=== PATIENT | female | born 1955 | race Caucasian/White ===

== ENCOUNTER 2017-10-24 05:55 | Inpatient (IN) | payer BC, OTHER ==
--- NOTE | 2017-10-24 06:05 | NUR ---
GPS RN NOTES: ADMITTED A 62 Y/O, FEMALE FROM [facility], ACCOMPANIED BY 2 EMT'S VIA GURNEY TRANSPORTED BY AMBULANCE. PATIENT ADMITTED ON HOLD 5150 DTS/DTO/GD. PER HOLD PATIENT HAS INCREASED AGITATION, FORGETFULNESS, YELLING, COMBATIVE, VERBALLY ABUSIVE, AND IS USING PROFANE LANGUAGE TOWARDS STAFF. UPON FACE TO FACE EVALUATION PATIENT ASLEEP, AROUSABLE TO TACTILE AND VERBAL STIMULI, CONFUSED, NO ACUTE DISTRESS NOTED, PATIENT WAS PLACED IN BED COMFORTABLY, SHOWS NO S/S OF ANY DISCOMFORT, RESPIRATION EVEN, BREATHING NON-LABORED, PATIENT IS UNDER THE PSYCHIATRIC CARE OF , ORDERS OBTAINED, AND UNDER THE THE MEDICAL CARE OF DR. STEWARD AND NOTIFIED OF ADMISSION TO RECONCILE MEDICATIONS. PATIENT REFUSED TO SIGN PAPERWORK AND REFUSED SKIN BODY ASSESSMENT. BELONGINGS INVENTORIED AND CHECKED FOR CONTRABAND, PATIENT BED IS LOCKED, LOW BED FOR SAFETY. WILL CONTINUE TO MONITOR [id number] FOR SAFETY AND BEHAVIOR. WILL ENDORSE TO INCOMING SHIFT FOR CONTINUITY OF CARE.
[2017-10-24] MEDS ORDERED: ACETAMINOPHEN 325 MG TABLET PO PRN (06:30)
[2017-10-24] MEDS ORDERED: MAGNESIUM HYDROXIDE 30 ML UDC PO PRN (06:30)
[2017-10-24] MEDS ORDERED: LORAZEPAM 0.5 MG TABLET PO PRN (06:30)
[2017-10-24] MEDS ORDERED: MAG HYDROX/AL HYDROX/SIMETH 30 ML UDC PO PRN (06:30)
[2017-10-24 06:53] VITALS: BP 138/86
[2017-10-24 08:00] VITALS: BP 133/70
[2017-10-24] MEDS ORDERED: DICY20TA11 PO (08:14)
[2017-10-24] MEDS ORDERED: ATOR10TA PO (08:14)
[2017-10-24] MEDS ORDERED: PRAM0.253 PO (08:14)
[2017-10-24] MEDS ORDERED: FLUT1BLS IH (08:14)
[2017-10-24] MEDS ORDERED: BIFI4CAP PO (08:14)
[2017-10-24] MEDS ORDERED: BUPR2TAB3 SL (08:14)
[2017-10-24] MEDS ORDERED: BENZ-13 PO (08:14)
[2017-10-24] MEDS ORDERED: CHOL100044 PO (08:14)
[2017-10-24] MEDS ORDERED: PRAS25TA PO (08:14)
[2017-10-24] MEDS ORDERED: QUET25TA PO (08:14)
[2017-10-24] MEDS ORDERED: VENL75CA56 PO (08:14)
[2017-10-24] MEDS ORDERED: ASPI-1169 PO (08:14)
[2017-10-24] MEDS ORDERED: RANI150T8 PO (08:14)
[2017-10-24] MEDS ORDERED: MULT-447 PO (08:14)
[2017-10-24] MEDS ORDERED: UBID200C13 PO (08:14)
[2017-10-24] MEDS ORDERED: ESTR-7 PO (08:14)
[2017-10-24] MEDS ORDERED: PROP20TA7 PO (08:14)
[2017-10-24] MEDS ORDERED: TIOT18CA3 IH (08:14)
[2017-10-24] MEDS ORDERED: ALBU8.5H8 IH (08:14)
[2017-10-24] MEDS: QUETIAPINE FUMARATE 25 MG TABLET PO SCH ×2 (11:50→16:16)
--- NOTE | 2017-10-24 15:36 | NUR ---
Initial Discharge Note: Patient lives with and son at [address] [place] [address] / [phone] and wishes to return upon discharge. SW called and spoke to patient's , Adam Banerjee at [phone]. states that he would like his to return home once she is stable. SW to follow up with MD and form a safe and proper discharge.
--- NOTE | 2017-10-24 15:48 | NUR ---
UR Review: MARLA FAXED CLINICALS TO TAMAR Mendez PHONE [phone] EXT [phone] / FAX # [phone]. MEDICAL / PSYCH HISTORY AND PHYSICAL WERE NOT AVAILABLE YET. MARLA INFORMED TAMAR THAT MARLA WILL FAX OVER HISTORY AND PHYSICAL ONCE UPLOADED. MARLA TO FOLLOW UP ON FRIDAY MORNING. REVIEW IS DUE ON 10/28. AUTHORIZATION#[id number]
[2017-10-24 16:00] VITALS: BP 131/63
[2017-10-24 21:39] VITALS: BP 116/59
[2017-10-24] MEDS ORDERED: ALBUTEROL SULFATE 8 GM HFA.AER.AD IH PRN (22:30)
[2017-10-25 08:00] VITALS: BP 144/79
[2017-10-25 08:01] LABS: MAGNESIUM 1.9 mg/dL (1.8-2.4); PHOSPHORUS 4.1 mg/dL (2.5-4.9)
[2017-10-25 08:04] LABS: ALBUMIN 3.8 g/dL (3.4-5.0); BILIRUBIN,TOTAL 0.6 mg/dL (0.2-1.0); CALCIUM, SERUM 9.2 mg/dL (8.5-10.1); CREATININE 0.6 mg/dL (0.6-1.3); POTASSIUM 3.7 mmol/L (3.5-5.1)
[2017-10-25] MEDS: QUETIAPINE FUMARATE 25 MG TABLET PO SCH ×2 (08:49→17:04)
[2017-10-25] MEDS ORDERED: TIOTROPIUM BROMIDE 6 CAP/BOX CAP.W.DEV IH SCH (09:00)
[2017-10-25] MEDS ORDERED: ALBUTEROL FS 2.5 MG/0.5 ML VIAL.NEB NEB PRN (09:30)
[2017-10-25] MEDS ORDERED: IPRATROPIUM NEB FS 0.5 MG/2.5 ML AMPUL.NEB NEB PRN (09:30)
[2017-10-25] MEDS: ASPIRIN 81 MG TAB.CHEW PO SCH (11:09)
[2017-10-25] MEDS: FLUTICASONE/VILANTEROL 1 EACH BLST.W.DEV IH SCH (11:09)
[2017-10-25] MEDS: BENZONATATE 100 MG CAPSULE PO SCH ×2 (14:30→17:04)
[2017-10-25 16:00] VITALS: BP 138/82
[2017-10-25] MEDS ORDERED: PRAMIPEXOLE DI-HCL 0.25 MG TABLET PO SCH (18:00)
--- NOTE | 2017-10-25 18:58 | NUR ---
GPS/RN UA COLLECTION CAP, HAT IN PT'S ROOM. PT EXPLAINED THE PROCEDURE AND SHE PROMISED TO COLLECT URINE SPECIMEN. WILL ENDORSE TO VIRA SHIFT TO FOLLOW UP WITH COLLECTION.
[2017-10-25 20:00] VITALS: BP 121/74
[2017-10-25] MEDS: TEMAZEPAM 7.5 MG CAPSULE PO PRN (21:45)
[2017-10-25] MEDS ORDERED: ATORVASTATIN 10 MG TABLET PO SCH (22:00)
[2017-10-26 08:00] VITALS: BP 120/73
[2017-10-26] MEDS: ASPIRIN 81 MG TAB.CHEW PO SCH (08:33)
[2017-10-26] MEDS: QUETIAPINE FUMARATE 25 MG TABLET PO SCH ×2 (08:53→17:16)
[2017-10-26] MEDS: FLUTICASONE/VILANTEROL 1 EACH BLST.W.DEV IH SCH (10:35)
[2017-10-26] MEDS: BENZONATATE 100 MG CAPSULE PO SCH ×2 (10:35→17:16)
[2017-10-26 14:06] LABS: APPEARANCE,URINE CLEAR (CLEAR); BILIRUBIN,URINE NEGATIVE (NEGATIVE); BLOOD, URINE NEGATIVE Ery/uL (NEGATIVE); COLOR,URINE YELLOW (YELLOW); KETONES,URINE TRACE (NEGATIVE); LEUKOCYTE ESTERASE ,URINE NEGATIVE (NEGATIVE); NITRITE, URINE NEGATIVE (NEGATIVE); PH,URINE 6.5 (5.0-8.0); PROTEIN,URINE NEGATIVE (NEGATIVE); UGLUCOSE NEGATIVE (NEGATIVE); UROBILINOGEN,URINE 0.2 EU/dL (0.2)
[2017-10-26 14:52] LABS: BACTERIA,URINE None seen /HPF (None Seen); RBC,URINE 0-2 /HPF (0-2); WBC,URINE 0-2 /HPF (0-3)
[2017-10-26 20:03] VITALS: BP 142/77
[2017-10-26] MEDS: TEMAZEPAM 7.5 MG CAPSULE PO PRN (21:36)
--- NOTE | 2017-10-26 22:46 | NUR ---
GPS RN NOTES PT. REFUSED WEEKLY SKIN REASSESSMENT AND PICTURES.
[2017-10-27 08:00] VITALS: BP 115/78
[2017-10-27] MEDS: QUETIAPINE FUMARATE 25 MG TABLET PO SCH ×2 (08:37→17:18)
[2017-10-27] MEDS: FLUTICASONE/VILANTEROL 1 EACH BLST.W.DEV IH SCH (08:37)
[2017-10-27] MEDS: ASPIRIN 81 MG TAB.CHEW PO SCH (08:37)
[2017-10-27] MEDS: BENZONATATE 100 MG CAPSULE PO SCH ×2 (08:37→17:18)
--- NOTE | 2017-10-27 10:35 | NUR ---
UR Update: MARLA FAXED UPDATED AND COMPLETED CLINICALS [HISTORY AND PHYSICAL, PROGRESS NOTES] TO TAMAR Mendez PHONE [phone] EXT [phone] / FAX # [phone]. REVIEW IS DUE ON 10/28. MARLA TO FOLLOW UP. AUTHORIZATION#[id number]
--- NOTE | 2017-10-27 10:36 | NUR ---
Discharge Planning: MARLA called and spoke to patient's , Adam Banerjee at [phone]. Adam stated that he is very happy with his 's progress and that he is willing to take her home when she is ready. Adam requested that home health be assigned for patient. Adam stated that he is retired and will be able to care for patient. Addendum: 10/27/17 at 1106 by DAVIDSON GUTIÉRREZ Adam's phone number is [phone]
[2017-10-27 16:17] VITALS: BP 117/88
[2017-10-27 20:03] VITALS: BP 120/75
[2017-10-27] MEDS: TEMAZEPAM 7.5 MG CAPSULE PO PRN (23:54)
[2017-10-28 08:00] VITALS: BP 149/100
[2017-10-28] MEDS: ASPIRIN 81 MG TAB.CHEW PO SCH (08:03)
[2017-10-28] MEDS: QUETIAPINE FUMARATE 25 MG TABLET PO SCH (08:03)
[2017-10-28] MEDS: BENZONATATE 100 MG CAPSULE PO SCH (08:03)
[2017-10-28] MEDS: FLUTICASONE/VILANTEROL 1 EACH BLST.W.DEV IH SCH (08:05)
--- NOTE | 2017-10-28 09:52 | NUR ---
Discharge Note: Patient will be discharged home to her and son at [address] [place] [address] / [phone]. Patient will be picked up by , Adam Banerjee [phone], in his private vehicle at 10:30am. Adam Banerjee is in agreement with discharge plan. Patient will be seen by psychiatrist Dr. Sunday Kang [address] [facility] [address], [place] [address] [phone] on November 24 at 1:30pm. Patient will also follow up with her lace mender, Dr. Nicki Caceres [address] [facility] [address], [place] [address] [phone] Patient was also provided referrals for her alcohol use. Patient was referred to an Alcoholic Anonymous meeting on November 03 at 12pm, located at [address] [place] [address]. Patient was referred to [facility] [address] [place] [address] and was informed that [facility] accepts walk-in clients before 5pm on weekdays. An additional resource was [facility] [address] [place] [address] .
--- NOTE | 2017-10-28 10:05 | NUR ---
SW conducted a substance abuse intervention with patient. Completed intervention is in patient's chart.
--- NOTE | 2017-10-28 10:30 | NUR ---
[id number]: PT IS 62 YEARS OLD DISCHARGE TO HOME WITH AND [place]ON AT [address] [place]. [address] IN STABLE CONDITION. COMPLAINT WITH MEDICATIONS, COOPERATIVE WITH TREATMENT PLANS. PT DENIES SI/HI AND INSTRUCTED TO GO TO THE CLOSEST ER IF DEVELOPING SI/HI. BEHAVIOR IMPROVED, PSYCHIATRIC TX PLANS MET, MEDICAL TX PLANS DEFERRED FOR CONTINUAL MONITORING. EDUCATED PT ABOUT AFTER CARE PLAN AND COPY PROVIDED. RETURN PERSONAL BELONGINGS TO PT. MEDICATIONS RECONCILED WITH DR. UGALDE AND SUPPLY CHAIN SPECIALIST ANTHONY VALENTINE. REPORT GIVEN TO TAYLER CARRION FOR CONTINUITY OF CARE. PROVIDE A COPY OF HOME HEALTH ORDERED. PT SIGNED DISCHARGE PAPERWORK. PT REFUSED SKIN ASSESSMENT. PT LEFT VIA PRIVATE CAR ACCOMPANIED BY AND SON.
--- NOTE | 2017-10-28 11:40 | NUR ---
MARLA asked RN to obtain home health order for patient from medical doctor. Home Health order was obtained. In the morning, MARLA called patient's insurance agency manager, Soni [phone] EXT [phone] / FAX # [phone] and requested a list of contracted home health agencies to be faxed to MARLA. MARLA to follow up.
[2017-11-01] MEDS ORDERED: DIVA500T2 PO (10:55)
== END 2017-10-28 10:30 | disposition home or self-care (01) | DRG 885 ==
LOC: GPS 05:55
PROVIDERS: ADMIT Psychiatry & Neurology Psychosomatic Medicine; ATTEND Psychiatry & Neurology Psychosomatic Medicine
DX: F29 Unspecified psychosis not due to a substance or known physiological condition (principal); G31.09 Other frontotemporal neurocognitive disorder; F02.80 Dementia in other diseases classified elsewhere, unspecified severity, without behavioral disturbance, psychotic disturbance, mood disturbance, and anxiety; F41.9 Anxiety disorder, unspecified; I25.10 Atherosclerotic heart disease of native coronary artery without angina pectoris; K21.9 Gastro-esophageal reflux disease without esophagitis; E78.5 Hyperlipidemia, unspecified; F32.9 Major depressive disorder, single episode, unspecified; Z79.891 Long term (current) use of opiate analgesic; Z79.899 Other long term (current) drug therapy; M79.7 Fibromyalgia; I10 Essential (primary) hypertension
CPT/HCPCS: 36415; 80053-TC; 80061-TC; 81000-TC; 82746; 83540-TC; 83735-TC; 84100-TC; 84443-TC

== ENCOUNTER 2017-10-29 07:44 | Inpatient (IN) | payer BC, OTHER ==
[~2017-10-29] VITALS: Ht 157.5 cm; Wt 65.3 kg
[~2017-10-29 07:44] MED LIST: ALBU8.5H8 IH; ASPI-1169 PO; ATOR10TA PO; BENZ-13 PO; BIFI4CAP PO; BUPR2TAB3 SL; CHOL100044 PO; DICY20TA11 PO; ESTR-7 PO; FLUT1BLS IH; MULT-447 PO; PRAM0.253 PO; PRAS25TA PO; PROP20TA7 PO; QUET25TA PO; RANI150T8 PO; TIOT18CA3 IH; UBID200C13 PO; VENL75CA56 PO
--- NOTE | 2017-10-29 07:48 | NUR ---
DR. TAN AT BEDSIDE
--- NOTE | 2017-10-29 07:55 | NUR ---
BIB FAMILY FROM HOME C/O ALTERED MENTAL STATUS, LAST KNOWN WELL WAS LAST NIGHT PER FAMILY. PATIENT WAS DISCHARGED YESTERDAY FROM GPS. FAMILY DENIES USE OF OTHER DRUGS ASIDE FROM THE ONE BEING PRESCRIBED TO HER. ALSO DENIES FALL. SKIN IS COLD AND DIAPHORETIC. PLACED ON 2 POINT RESTRAINTS PER ER MD ORDER. ASSISTED TO HOSPITAL GOWN AND MONITOR. ER MD AT FOR EVAL. WILL CONTINUOUSLY MONITOR THE PATIENT.
[2017-10-29] MEDS ORDERED: IV NS 0.9% 500 ML BAG IV ONE (08:00)
[2017-10-29] MEDS ORDERED: LORAZEPAM INJ 2 MG/ML VIAL ONE (08:00)
[2017-10-29] MEDS ORDERED: LORAZEPAM INJ 2 MG/ML VIAL IV ONE (08:00)
[2017-10-29 08:12] LABS: BASOPHILS % (AUTO) 0.2 % (0.0-2.0); EOSINOPHILS # (AUTO) 0.1 /CMM (0.0-0.7); EOSINOPHILS % (AUTO) 1.3 % (0.0-6.0); HEMATOCRIT 37 % (33-45); HEMOGLOBIN 12.9 g/dL (11.5-14.8); LYMPHOCYTES # (AUTO) 1.4 /CMM (0.8-4.8); LYMPHOCYTES % (AUTO) 12.6 % (20.0-44.0); MEAN CORPUSCULAR HEMOGLOBIN 34 PG (26.0-33.0); MEAN CORPUSCULAR HGB CONC 35 g/dl (31.0-36.0); MEAN CORPUSCULAR VOLUME 98 fL (82-100); MONOCYTES # (AUTO) 0.6 /CMM (0.1-1.30); MONOCYTES % (AUTO) 5.6 % (2.0-12.0); NEUTROPHILS # (AUTO) 8.9 /CMM (1.8-8.9); NEUTROPHILS % (AUTO) 80.3 % (43.0-81.0); PLATELET COUNT (AUTO) 317 /CMM (150-450); RDW COEFFICIENT OF VARIATION 14.1 (11.5-15.0); RED BLOOD CELL COUNT(AUTO) 3.78 MIL/uL (4.0-5.2); WHITE BLOOD COUNT (AUTO) 11.1 K/uL (4.3-11.0)
--- NOTE | 2017-10-29 08:13 | NUR ---
DUE MEDS GIVEN ORDERED
[2017-10-29 08:21] LABS: CALCIUM, SERUM 9.9 mg/dL (8.5-10.1); CARBON DIOXIDE 24 mmol/L (21-32); CHLORIDE 105 mmol/L (98-107); CREATININE 0.7 mg/dL (0.6-1.3); GLUCOSE 103 mg/dL (74-106); POTASSIUM 5.7 mmol/L (3.5-5.1); SODIUM SERUM 141 mmol/L (136-145); UREA NITROGEN, BLOOD 13 mg/dL (7-18)
[2017-10-29 08:23] LABS: APPEARANCE,URINE SL CLOUDY (CLEAR); BILIRUBIN,URINE NEGATIVE (NEGATIVE); BLOOD, URINE NEGATIVE Ery/uL (NEGATIVE); COLOR,URINE YELLOW (YELLOW); KETONES,URINE NEGATIVE (NEGATIVE); LEUKOCYTE ESTERASE ,URINE NEGATIVE (NEGATIVE); NITRITE, URINE NEGATIVE (NEGATIVE); PROTEIN,URINE NEGATIVE (NEGATIVE); UGLUCOSE NEGATIVE (NEGATIVE); UROBILINOGEN,URINE 0.2 EU/dL (0.2)
[2017-10-29 08:23] LABS: INR 0.88 (0.87-1.13)
[2017-10-29 08:27] LABS: ALANINE AMINOTRANSFERASE 31 U/L (12-78); ALBUMIN 4.6 g/dL (3.4-5.0); ALKALINE PHOSPHATASE 93 U/L (46-116); ASPARTATE AMINOTRANSFERASE 28 U/L (15-37); TOTAL PROTEIN, SERUM 8.3 g/dL (6.4-8.2)
[2017-10-29 08:28] LABS: BILIRUBIN,TOTAL 0.8 mg/dL (0.2-1.0); TROPONIN I < 0.017 ng/mL (0.00-0.056)
[2017-10-29 08:29] LABS: ALCOHOL, BLOOD < 3 mg/dL (0-0); BILIRUBIN,DIRECT 0.1 mg/dL (0.0-0.2)
[2017-10-29] MEDS ORDERED: MIDAZOLAM HCL 2 MG/2ML VIAL ONE (08:29)
[2017-10-29] MEDS ORDERED: MIDAZOLAM HCL 2 MG/2ML VIAL IV ONE (08:30)
--- NOTE | 2017-10-29 08:30 | NUR ---
PT TAKEN TO CT.
[2017-10-29] MEDS ORDERED: IV NS 0.9% 1,000 ML BAG IV ONE (09:30)
[2017-10-29] MEDS ORDERED: BENZOIN COMPOUND TINCT 60 ML BOTTLE MM ONE (09:30)
[2017-10-29] MEDS ORDERED: BENZOIN COMPOUND TINCT 60 ML BOTTLE ONE (09:36)
--- NOTE | 2017-10-29 09:48 | NUR ---
DR. HAMM AT BS FOR EVAL.
[2017-10-29] MEDS ORDERED: HALOPERIDOL LACTATE INJ 5 MG/ML VIAL ONE ×2 (09:54→10:25)
--- NOTE | 2017-10-29 10:00 | NUR ---
RECEIVED VERBAL ORDERS FROM FOR HALDOL. ORDERS CARRIED OUT.
--- NOTE | 2017-10-29 10:10 | NUR ---
DR. MERCEDES AT FOR EVAL.
--- NOTE | 2017-10-29 10:12 | NUR ---
REPORT GIVEN TO SHAHNAZ MONTENEGRO FOR TELE 116-1
[2017-10-29 10:13] LABS: CALCIUM, SERUM 9.4 mg/dL (8.5-10.1); CREATININE 0.7 mg/dL (0.6-1.3); POTASSIUM 5.1 mmol/L (3.5-5.1)
[2017-10-29] MEDS ORDERED: Z GUARD REMEDY 2 OZ OINT TP PRN (10:30)
[2017-10-29] MEDS ORDERED: HALOPERIDOL LACTATE INJ 5 MG/ML VIAL IM ONE (10:30)
[2017-10-29] MEDS ORDERED: ACETAMINOPHEN 650 MG/SUPP.RECT RC PRN (10:30)
[2017-10-29] MEDS ORDERED: ONDANSETRON HCL/PF 4 MG/2 ML VIAL IVP PRN (10:30)
[2017-10-29 10:45] LABS: SALICYLATE 2.5 mg/dL (2.8-20.0)
--- NOTE | 2017-10-29 11:00 | NUR ---
RABIA BULK PLANT OPERATOR NOTE: REPORT RECEIVED FROM MONI MOON. PATIENT TRANSFERRED VIA GURNEY ACCOMPANIED BY MANAGER UTILIZATION REVIEW AND ENGLISH TUTOR. ADMITTED IN RM 114-1 RABIA STATUS. PATIENT IS NOT ALERT, UNABLE TO VERBALIZE NEEDS. WITH EYES CLOSE AND UNABLE TO FOLLOW SIMPLE COMMANDS. PT WAS UNCOOPERATIVE AND ALL EXTREMITIES WERE MOVING CONSISTENTLY. PATIENT ARRIVED TO THE UNIT WITH BILATERAL SOFT WRIST RESTRAINTS. RIGHT HAND IV SITE WAS NOTED PULLED OUT. GREENBERG CATHETER WAS IN PLACED UPON ADMISSION DRAINING TO GRAVITY WITH YELLOW URINE. ON CARDIAC MONITORING WITH SINUS TACHYCARDIA HR 126. GENERALIZED SKIN WAS NOTED INTACT EXCEPT FOR THE LEFT LOWER LEG SCAR WITH REDNESS NOTED. BED ALARM ON. SAFETY PRECAUTIONS OBSERVED. PADDED SIDERAILS FOR SAFETY. CALL LIGHT PLACED WITHIN REACH.
[2017-10-29] MEDS: ENOXAPARIN SODIUM 40 MG/0.4 ML DISP.SYRIN SQ SCH (11:27)
[2017-10-29 12:00] VITALS: BP_SYST 100; BP_SYST 136; BP_DIAS 45; BP_DIAS 83
--- NOTE | 2017-10-29 13:00 | NUR ---
RN NOTE: PER DR. MCLEAN, START IV FLUID 1/2 NS @75ML/HR.
[2017-10-29] MEDS: LORAZEPAM INJ 2 MG/ML VIAL IV PRN ×2 (13:50→20:51)
[2017-10-29] MEDS: IV 1/2NS 1000 ML 1,000 ML IV PRN (13:51)
[2017-10-29 16:00] VITALS: BP 137/74
[2017-10-29 17:06] VITALS: BP 94/137
--- NOTE | 2017-10-29 19:19 | NUR ---
RABIA RN NOTE: CALLED AND LEFT A MESSAGE FOR DR. BELLO RE: THE PATIENT'S EEG ORDER. EEG TEST WAS NOT DONE DUE TO PATIENT'S INTERMITTENT MOVEMENT DESPITE ADMINISTRATION OF ATIVAN PRN ORDERED.
--- NOTE | 2017-10-29 19:20 | NUR ---
RABIA RN CLOSING NOTE: PATIENT IS IN BED, ALERT TO HER NAME WITH INTERMITTENT CONFUSION NOTED. OPEN HER EYES WHEN CALLING HER NAME. CONTINUOUS REORIENTATION OF HER SURROUNDING WAS DONE. NO SOB NOTED. DENIED ANY PAIN. (B) SOFT WRIST RESTRAINT REMAINED IN PLACED FOR SAFETY. REORIENTED PATIENT WITH HER ENVIRONMENT. GREENBERG CATHETER IN PLACED AND DRAINING TO GRAVITY. (R) FOREARM IV LINE REMAINED INTACT AND PATENT WITH 1/2 NS INFUSING ORDERED. ON GUN FITTER SINUS TACHYCARDIA HR OF 120. CALL LIGHT WITHIN REACH. ON PADDED SIDERAILS. LOW BED AND BED ON LOCKED. ENDORSED TO ASHLEY, RN FOR CONTINUITY OF CARE.
--- NOTE | 2017-10-29 19:30 | NUR ---
RABIA RN INITIAL NOTES RECEIVED PATIENT RESTLESS, ALTERED, ATTEMPTING TO GET OUT OF BED WITH EYES CLOSED, MUMBLING WORDS. NO S/S OF PAIN OR DISCOMFORT. SITTER AT BEDSIDE. ON TELE MONITOR SINUS TACH 115. WITH F/C PATENT AND INTACT, DRAINING BY GRAVITY. IVF RUNNING. SIDE RAILS UP AND LOCKED. BED KEPT AT LOWEST POSITION. CALL LIGHT KEPT WITHIN EASY REACH. WILL CONTINUE TO MONITOR.
[2017-10-29 20:00] VITALS: BP 142/82
[2017-10-30] VITALS: BP 132/59
[2017-10-30] MEDS: IV 1/2NS 1000 ML 1,000 ML IV PRN (02:46)
[2017-10-30 04:00] VITALS: BP 129/73
--- NOTE | 2017-10-30 04:00 | NUR ---
PATIENT STILL DROWSY BUT AROUSABLE, ABLE TO STATE NAME AND YEAR, ABLE TO FOLLOW SIMPLE COMMANDS. DENIES PAIN OR DISCOMFORT. NO RESPIRATORY DISTRESS NOTED. WILL CONTINUE TO MONITOR.
[2017-10-30 07:24] LABS: BASOPHILS % (AUTO) 0.4 % (0.0-2.0); EOSINOPHILS # (AUTO) 0.1 /CMM (0.0-0.7); EOSINOPHILS % (AUTO) 0.6 % (0.0-6.0); HEMATOCRIT 35 % (33-45); HEMOGLOBIN 11.9 g/dL (11.5-14.8); LYMPHOCYTES # (AUTO) 1.6 /CMM (0.8-4.8); LYMPHOCYTES % (AUTO) 15.8 % (20.0-44.0); MEAN CORPUSCULAR HEMOGLOBIN 34 PG (26.0-33.0); MEAN CORPUSCULAR HGB CONC 34 g/dl (31.0-36.0); MEAN CORPUSCULAR VOLUME 100 fL (82-100); MONOCYTES # (AUTO) 0.8 /CMM (0.1-1.30); NEUTROPHILS # (AUTO) 7.5 /CMM (1.8-8.9); NEUTROPHILS % (AUTO) 75.2 % (43.0-81.0); PLATELET COUNT (AUTO) 257 /CMM (150-450); RDW COEFFICIENT OF VARIATION 14.1 (11.5-15.0); RED BLOOD CELL COUNT(AUTO) 3.49 MIL/uL (4.0-5.2)
--- NOTE | 2017-10-30 07:31 | NUR ---
RABIA RN CLOSING NOTES NO SIGNIFICANT CHANGES OVERNIGHT. NO RESPIRATORY DISTRESS NOTED. NO SEIZURE EPISODE. 1:1 SITTER AT BEDSIDE. PATIENT MORE ALERT, FOLLOWS SIMPLE COMMANDS. ALL NEEDS ANTICIPATED AND MET. F/C PATENT AND INTACT, DRAINING BY GRAVITY. SIDE RAILS UP AND LOCKED. BED KEPT AT LOWEST POSITION. CALL LIGHT KEPT WITHIN EASY REACH. CONTINUITY OF CARE ENDORSED TO AM NURSE.
[2017-10-30 07:40] LABS: CREATININE 0.5 mg/dL (0.6-1.3); PHOSPHORUS 4.1 mg/dL (2.5-4.9); POTASSIUM 3.2 mmol/L (3.5-5.1)
[2017-10-30 08:00] VITALS: BP 130/69
[2017-10-30] MEDS: ENOXAPARIN SODIUM 40 MG/0.4 ML DISP.SYRIN SQ SCH (08:41)
[2017-10-30] MEDS: POTASSIUM CL. PREMIX PERIPHER. 50 ML IV SCH ×4 (11:10→14:56)
[2017-10-30 12:00] VITALS: BP 138/82
[2017-10-30 16:00] VITALS: BP 138/80
--- NOTE | 2017-10-30 18:52 | NUR ---
Patient was recently admitted at the [facility] unit and discharged home on 10/24/17. She lives with and son at [address] [place] [address], [place] [address] / [phone]. Patient is ambulatory and independent with adl's. and son are very involved and supportive. Current plan is to dc back home once discharge . Addendum: 10/30/17 at 1852 by MARIA LUISA PANIAGUA RN Amended: Links added.
--- NOTE | 2017-10-30 19:47 | NUR ---
RABIA RN INITIAL NOTES RECEIVED PATIENT IN BED AWAKE, ABLE TO RESPOND TO QUESTIONS . DENIES PAIN OR DISCOMFORT. SITTER AT BEDSIDE. ON TELE MONITOR SINUS TACH 115. WITH F/C PATENT AND INTACT, DRAINING BY GRAVITY. IVF RUNNING. SIDE RAILS UP AND LOCKED. BED KEPT AT LOWEST POSITION. CALL LIGHT KEPT WITHIN EASY REACH. WILL CONTINUE TO MONITOR.
[2017-10-30 20:00] VITALS: BP 135/86
[2017-10-30] MEDS: LORAZEPAM INJ 2 MG/ML VIAL IV PRN (23:16)
[2017-10-31] VITALS: BP 121/78
[2017-10-31 04:00] VITALS: BP 118/74
--- NOTE | 2017-10-31 06:20 | NUR ---
RABIA RN CLOSING NOTES ENDORSED PATIENT IN BED AWAKE, ABLE TO RESPOND TO QUESTIONS . DENIES PAIN OR DISCOMFORT. SITTER AT BEDSIDE. ON TELE MONITOR SINUS TACH 106. WITH F/C PATENT AND INTACT, DRAINING BY GRAVITY. IVF RUNNING. SIDE RAILS UP AND LOCKED. BED KEPT AT LOWEST POSITION. CALL LIGHT KEPT WITHIN EASY REACH. WILL CONTINUE TO MONITOR.
[2017-10-31 07:08] LABS: CALCIUM, SERUM 8.8 mg/dL (8.5-10.1); CREATININE 0.4 mg/dL (0.6-1.3); POTASSIUM 4.2 mmol/L (3.5-5.1)
--- NOTE | 2017-10-31 07:36 | NUR ---
RABIA RN INITIAL NOTES RN RECEIVED PATIENT IN BED AWAKE AND ALERT . PATIENT STATES PAIN AND DISCOMFORT DUE TO GREENBERG. F/C PATENT AND INTACT, DRAINING BY GRAVITY. SITTER AT BEDSIDE. PT ON TELE MONITOR. IVF RUNNING. SIDE RAILS UP AND LOCKED. BED KEPT AT LOWEST POSITION. CALL LIGHT KEPT WITHIN EASY REACH. RN WILL CONTINUE TO MONITOR THROUGHOUT THE DAY.
[2017-10-31 08:00] VITALS: BP 131/78
[2017-10-31] MEDS: ENOXAPARIN SODIUM 40 MG/0.4 ML DISP.SYRIN SQ SCH (08:26)
--- NOTE | 2017-10-31 11:09 | NUR ---
ELEVATOR INSTALLER PATIENT WANTS TO REMOVE GREENBERG DR RIVERA NOTIFIED OK TO REMOVE,REMOVED ORDERED 500 ML NOTED WILL F\U TO URINATE
--- NOTE | 2017-10-31 11:12 | NUR ---
WOUND CARE CONSULT: PT PRESENTS WITH FEW DARK BROWN SPOTS ON LEFT LOWER LEG. NO DRAINAGE NOTED BUT PT NOTED TO BE PICKING AT SKIN. RECOMMEND PROTECT WITH MEPILEX. PT AND FAMILY STATE SHE IS BEING TREATED BY VASCULAR SURGEON. WILL SEE PRN. PT IS AMBULATORY AND CONTINENT AT THIS POINT. CURRENT ROLLY SCORE IS 16.
[2017-10-31 12:00] VITALS: BP_SYST 135; BP_DIAS 54; BP_DIAS 84
[2017-10-31] MEDS ORDERED: VALPROATE 1,000 MG in IV D5W 100 ML IV STA (15:36)
[2017-10-31 16:00] VITALS: BP 121/83
--- NOTE | 2017-10-31 19:59 | NUR ---
rn note rn notified and endorsed patient need for a new iv line due to her previous iv infiltration pm rn acknowledged and attempts to insert a new line for the patient pm charge nurse notified.
[2017-10-31 20:00] VITALS: BP 156/84
--- NOTE | 2017-10-31 20:01 | NUR ---
AUTO CLAIM REPRESENTATIVE INITIAL NOTE PT IN BED AWAKE, ALERT ABLE TO MAKE NEEDS KNOWN . DENIES PAIN OR DISCOMFORT AT THIS TIME . SITTER AT BEDSIDE. ON TELE MONITOR SINUS TACH. F/C D/C'D PER PATIENT REQUEST PATIENT AMBULATORY . IVF HELD DUE TO IV INFILTRATION PM RN NOTIFIED AND WILL ATTEMPT TO PLACE A NEW LINE . SIDE RAILS UP AND LOCKED. BED KEPT AT LOWEST POSITION. CALL LIGHT KEPT WITHIN EASY REACH. WILL CONTINUE TO MONITOR.
[2017-10-31] MEDS: IV 1/2NS 1000 ML 1,000 ML IV PRN (20:22)
[2017-10-31] MEDS: LORAZEPAM INJ 2 MG/ML VIAL IV PRN (20:32)
[2017-10-31] MEDS: DIVALPROEX SODIUM 500 MG TABLET.DR PO SCH (20:32)
[2017-11-01] VITALS: BP 141/85
[2017-11-01] MEDS: LORAZEPAM INJ 2 MG/ML VIAL IV PRN (02:23)
[2017-11-01 04:00] VITALS: BP 11/72
--- NOTE | 2017-11-01 06:00 | NUR ---
pt slept well overnight,ambulates to bathroom and voiding well, no episode of seizure activity,ativan requested x2 doses given overnight. continue with iv fluids infusing well to new iv site ,intact and patent,vss,afebrile, sinus rhythm on monitor.
[2017-11-01 08:00] VITALS: BP 118/78
[2017-11-01] MEDS: DIVALPROEX SODIUM 500 MG TABLET.DR PO SCH (08:40)
[2017-11-01] MEDS: ENOXAPARIN SODIUM 40 MG/0.4 ML DISP.SYRIN SQ SCH (08:43)
[2017-11-01] MEDS ORDERED: DIVA500T2 PO (10:55)
--- NOTE | 2017-11-01 11:30 | NUR ---
Discharge of the stable patient from [facility]. Family accompanied for discharge instruction and ride to her home. IV removed. All belonings and paperwork sent with the patient. Prescription picker/puller for depakote instruction to [facility]. Family and patient verbalize understanding.
== END 2017-11-01 11:43 | disposition home or self-care (01) | DRG 917 ==
LOC: ER 07:44 → TELE1 10:40 → TELE-TD 11:31 → TELE1 10-31 11:08 → MEDSG1 11-01 10:15
PROVIDERS: ADMIT Internal Medicine; ATTEND Internal Medicine
DX: T44.3X1A Poisoning by other parasympatholytics [anticholinergics and antimuscarinics] and spasmolytics, accidental (unintentional), initial encounter (principal); G92 Toxic encephalopathy; E87.2 Acidosis; R56.9 Unspecified convulsions; R65.10 Systemic inflammatory response syndrome (SIRS) of non-infectious origin without acute organ dysfunction; F29 Unspecified psychosis not due to a substance or known physiological condition; G31.09 Other frontotemporal neurocognitive disorder; F02.80 Dementia in other diseases classified elsewhere, unspecified severity, without behavioral disturbance, psychotic disturbance, mood disturbance, and anxiety; G89.4 Chronic pain syndrome; Z79.899 Other long term (current) drug therapy; Z79.891 Long term (current) use of opiate analgesic; Z79.82 Long term (current) use of aspirin; I10 Essential (primary) hypertension; Y92.009 Unspecified place in unspecified non-institutional (private) residence as the place of occurrence of the external cause; F43.9 Reaction to severe stress, unspecified; F32.9 Major depressive disorder, single episode, unspecified; H57.04 Mydriasis; E78.5 Hyperlipidemia, unspecified; I25.10 Atherosclerotic heart disease of native coronary artery without angina pectoris; K21.9 Gastro-esophageal reflux disease without esophagitis; M79.7 Fibromyalgia; I70.0 Atherosclerosis of aorta; R41.0 Disorientation, unspecified
CPT/HCPCS: 36415; 70450-TC; 71045-TC; 80048-TC; 80076-TC; 80164-TC; 80305; 81000-TC; 82550-TC; 82962-TC; 83605-TC; 83735-TC; 83935-TC; 84100-TC; 84484-TC; 85025-TC; 85730-TC; 87081-TC; 95819-TC; A4606; G0480; J1630; J1650; J2060; J2250; J3480; J3490; J7030; J7040; J7060; Z7610

== ENCOUNTER 2017-11-09 16:16 | Emergency (ER) | payer BC ==
[~2017-11-09] VITALS: Ht 152.4 cm; Wt 63.5 kg
[~2017-11-09 16:16] MED LIST changes: -BENZ-13 PO; -BIFI4CAP PO; -BUPR2TAB3 SL; -DICY20TA11 PO; +DIVA500T2 PO; -PRAM0.253 PO; -PROP20TA7 PO; -QUET25TA PO; -TIOT18CA3 IH; -VENL75CA56 PO
--- NOTE | 2017-11-09 16:37 | NUR ---
PT BIB TO ER BED 10. STATES PT IS MORE CONFUSED AND DISORIENTED. WEAK AND FALLING DOWN. PLACED ON MONITOR. STABLE VITALS. AWAITING MD MILLER.
--- NOTE | 2017-11-09 16:45 | NUR ---
DR HANNON AT BEDSIDE FOR EVAL.
[2017-11-09 17:23] LABS: BASOPHILS % (AUTO) 0.4 % (0.0-2.0); EOSINOPHILS % (AUTO) 0.7 % (0.0-6.0); HEMATOCRIT 34 % (33-45); HEMOGLOBIN 11.2 g/dL (11.5-14.8); LYMPHOCYTES # (AUTO) 1.8 /CMM (0.8-4.8); LYMPHOCYTES % (AUTO) 28.9 % (20.0-44.0); MEAN CORPUSCULAR HEMOGLOBIN 34 PG (26.0-33.0); MEAN CORPUSCULAR HGB CONC 33 g/dl (31.0-36.0); MEAN CORPUSCULAR VOLUME 101 fL (82-100); MONOCYTES # (AUTO) 0.4 /CMM (0.1-1.30); MONOCYTES % (AUTO) 6.9 % (2.0-12.0); NEUTROPHILS # (AUTO) 3.9 /CMM (1.8-8.9); NEUTROPHILS % (AUTO) 63.1 % (43.0-81.0); PLATELET COUNT (AUTO) 274 /CMM (150-450); RDW COEFFICIENT OF VARIATION 14.3 (11.5-15.0); RED BLOOD CELL COUNT(AUTO) 3.33 MIL/uL (4.0-5.2); WHITE BLOOD COUNT (AUTO) 6.2 K/uL (4.3-11.0)
[2017-11-09 17:32] LABS: CALCIUM, SERUM 9.3 mg/dL (8.5-10.1); CREATININE 0.7 mg/dL (0.6-1.3); POTASSIUM 4.5 mmol/L (3.5-5.1)
[2017-11-09 17:37] LABS: ALBUMIN 3.9 g/dL (3.4-5.0); BILIRUBIN,DIRECT 0.1 mg/dL (0.0-0.2); BILIRUBIN,TOTAL 0.4 mg/dL (0.2-1.0); TOTAL PROTEIN, SERUM 6.9 g/dL (6.4-8.2)
--- NOTE | 2017-11-09 18:41 | NUR ---
PT VERBALLY DISCHARGE BY SEDA AHNNON. STABLE CONDITION.
[2017-11-09 18:44] VITALS: BP 108/66
== END 2017-11-09 18:45 | disposition home or self-care (01) ==
LOC: ER 16:17
DX: R41.82 Altered mental status, unspecified (principal); G40.909 Epilepsy, unspecified, not intractable, without status epilepticus; I10 Essential (primary) hypertension; F17.200 Nicotine dependence, unspecified, uncomplicated; Z79.82 Long term (current) use of aspirin
CPT/HCPCS: 36415; 80048-TC; 80076-TC; 82140-TC; 85025-TC; A4606; G0480; Z7610

== ENCOUNTER 2017-11-13 11:44 | Inpatient (IN) | payer BC, OTHER ==
[~2017-11-13] VITALS: Ht 157.5 cm; Wt 56.7 kg
--- NOTE | 2017-11-13 12:30 | NUR ---
BIB FAMILY, TO ER FOR INCREASING CONFUSION AND HITTING ADAIR, NAD NOTED, VSS, RESP EVEN AND UNLABORED, PT PUT ON MONITOR, WAITING FOR MD ANGELA.
--- NOTE | 2017-11-13 12:41 | NUR ---
PT UNABLE TO PROVIDE URINE AT THIS MOMENT.
[2017-11-13 12:47] LABS: BASOPHILS # (AUTO) 0.2 /CMM (0.0-0.2); BASOPHILS % (AUTO) 2.4 % (0.0-2.0); EOSINOPHILS % (AUTO) 0.4 % (0.0-6.0); HEMATOCRIT 35 % (33-45); LYMPHOCYTES # (AUTO) 1.5 /CMM (0.8-4.8); LYMPHOCYTES % (AUTO) 21.6 % (20.0-44.0); MEAN CORPUSCULAR HEMOGLOBIN 34 PG (26.0-33.0); MEAN CORPUSCULAR HGB CONC 35 g/dl (31.0-36.0); MEAN CORPUSCULAR VOLUME 99 fL (82-100); MONOCYTES # (AUTO) 0.4 /CMM (0.1-1.30); NEUTROPHILS % (AUTO) 69.6 % (43.0-81.0); PLATELET COUNT (AUTO) 251 /CMM (150-450); RDW COEFFICIENT OF VARIATION 13.4 (11.5-15.0); WHITE BLOOD COUNT (AUTO) 7.1 K/uL (4.3-11.0)
[2017-11-13] MEDS ORDERED: LORAZEPAM 1 MG TABLET ONE (13:02)
[2017-11-13 13:03] LABS: ALANINE AMINOTRANSFERASE 13 U/L (12-78); ALBUMIN 3.7 g/dL (3.4-5.0); ALKALINE PHOSPHATASE 71 U/L (46-116); ASPARTATE AMINOTRANSFERASE 15 U/L (15-37); BILIRUBIN,DIRECT 0.1 mg/dL (0.0-0.2); BILIRUBIN,TOTAL 0.3 mg/dL (0.2-1.0); CARBON DIOXIDE 25 mmol/L (21-32); CHLORIDE 104 mmol/L (98-107); CREATININE 0.5 mg/dL (0.6-1.3); GLUCOSE 88 mg/dL (74-106); POTASSIUM 3.8 mmol/L (3.5-5.1); SODIUM SERUM 137 mmol/L (136-145); UREA NITROGEN, BLOOD 16 mg/dL (7-18)
[2017-11-13 13:04] LABS: ACETAMINOPHEN 0 ug/ml (10-30); ALCOHOL, BLOOD < 3 mg/dL (0-0); SALICYLATE 2.3 mg/dL (2.8-20.0)
[2017-11-13] MEDS ORDERED: LORAZEPAM 1 MG TABLET PO ONE (13:30)
--- NOTE | 2017-11-13 13:32 | NUR ---
urine sent to lab
[2017-11-13 13:35] LABS: APPEARANCE,URINE Clear (CLEAR); BILIRUBIN,URINE Negative (NEGATIVE); BLOOD, URINE Negative Ery/uL (NEGATIVE); COLOR,URINE Yellow (YELLOW); KETONES,URINE Trace (NEGATIVE); LEUKOCYTE ESTERASE ,URINE Negative (NEGATIVE); NITRITE, URINE Negative (NEGATIVE); PROTEIN,URINE Negative (NEGATIVE); UGLUCOSE Negative (NEGATIVE); UROBILINOGEN,URINE 0.2 EU/dL (0.2)
[2017-11-13] MEDS ORDERED: DIVA500T2 PO (14:10)
[2017-11-13] MEDS ORDERED: PROP10TA10 PO (14:11)
[2017-11-13] MEDS ORDERED: LORA-259 PO (14:11)
[2017-11-13] MEDS ORDERED: FLUT1BLS IH (14:15)
--- NOTE | 2017-11-13 15:30 | NUR ---
GPS/RN PATIENT ADMITTED ON A 5150 FOR DTS AND GD UNDER THE CARE OF DR UGALDE AND DR STEWARD. BOTH DR'S AWARE OF NEW ADMISSION, MEDICATIONS RECONCILED IN SYSTEM. PER HOLD PATIENT ATTEMPTED TO JUMP INTO TRAFFIC. UPON FACE TO FACE ASSESSMENT PATIENT IS ALERT X 3, STABLE CONDITION, ANXIOUS, DISORGANIZED, UNKEMPT AND DENIES ANY SI AT THIS TIME. PICTURES TAKEN OF SKIN, ADMISSION PACKET COMPLETED. AT THIS TIME PATIENT IS IN DINING ROOM, WILL CONTINUE TO MONITOR Q 15 MIN FOR SAFETY AND BEHAVIOR.
[2017-11-13] MEDS ORDERED: ACETAMINOPHEN 325 MG TABLET PO PRN (16:00)
[2017-11-13] MEDS ORDERED: MAGNESIUM HYDROXIDE 30 ML UDC PO PRN (16:00)
[2017-11-13] MEDS ORDERED: MAG HYDROX/AL HYDROX/SIMETH 30 ML UDC PO PRN (16:00)
[2017-11-13 16:48] VITALS: BP 120/92
[2017-11-13] MEDS ORDERED: UBIDECARENONE 600 MG PO SCH (17:00)
[2017-11-13] MEDS ORDERED: ALBUTEROL SULFATE 8 GM HFA.AER.AD IH PRN (17:00)
[2017-11-13] MEDS ORDERED: ALBUTEROL FS 2.5 MG/3 ML VIAL.NEB NEB PRN (17:30)
[2017-11-13] MEDS: PROPRANOLOL HCL 10 MG TABLET PO SCH (18:54)
[2017-11-13 20:00] VITALS: BP 106/58
[2017-11-13] MEDS: LORAZEPAM 0.5 MG TABLET PO PRN (21:30)
[2017-11-13] MEDS: ATORVASTATIN 10 MG TABLET PO SCH (21:30)
[2017-11-13] MEDS: DIVALPROEX SODIUM 500 MG TABLET.DR PO SCH (21:30)
[2017-11-13] MEDS: TEMAZEPAM 7.5 MG CAPSULE PO PRN (23:10)
[2017-11-14 08:00] VITALS: BP 108/65
[2017-11-14] MEDS: DIVALPROEX SODIUM 500 MG TABLET.DR PO SCH (09:03)
[2017-11-14] MEDS: MULTIVITAMINS,THERAGRAN 1 UDTAB TABLET PO SCH (09:04)
[2017-11-14] MEDS: ASPIRIN 81 MG TAB.CHEW PO SCH (09:04)
[2017-11-14] MEDS: CHOLECALCIFEROL 1,000 UNIT TABLET (VIT D3) PO SCH (09:04)
[2017-11-14] MEDS: PROPRANOLOL HCL 10 MG TABLET PO SCH ×2 (09:05→17:15)
[2017-11-14] MEDS: FLUTICASONE/VILANTEROL 1 EACH BLST.W.DEV IH SCH (09:08)
--- NOTE | 2017-11-14 10:24 | NUR ---
Assessment Note: SW attests to the accuracy of the psychosocial assessment dated October 24, 2017 at 15:25pm. There have been no changes to patient's information since then. Upon current [id number] assessment with SW, patient appears to be distraught and depressed. Patient is rocking back and forth on the bed, covering her head and face with the sheet. Patient is tearful and repeatedly states that her left her here. Patient is confused and does not know what date it is. When asked patient if she knows where she is, patient states, "in hell!" Patient repeats this multiple times. Patient avoids eye contact. Patient's motor activity is restless and agitated. Patient alternates between rocking back and forth and shaking her hands forcibly. When asked if she takes or has taken any drugs, prescription medication or alcohol, patient denies. Patient cries, "Why does everyone keep asking me that?" MARLA to get in touch with patient's , Adam [phone].
[2017-11-14] MEDS: LORAZEPAM 0.5 MG TABLET PO PRN (10:39)
--- NOTE | 2017-11-14 10:49 | NUR ---
GPS/RN-NOTES NOTED PATIENT CRYING IN HER BED STATED" I'M ANGRY WITH MY FOR LOCKING ME UP IN THE HOSPITAL" REDIRECTED PATIENT AND OFFERED ATIVAN AND AGREED. ATIVAN 0.5MG P.O GIVEN PRN ORDER. WILL CONT. MONITORING FOR SAFETY AND BEHAVIOR.
[2017-11-14] MEDS: QUETIAPINE FUMARATE 25 MG TABLET PO SCH ×2 (12:26→17:16)
--- NOTE | 2017-11-14 14:01 | NUR ---
UR Review: MARLA faxed clinicals to Marquita Cruz [phone] X [phone] / fax #[phone]. AUTHORIZATION#[id number]
[2017-11-14 15:43] VITALS: BP 101/63
[2017-11-14] MEDS: DIVALPROEX SODIUM 250 MG TABLET.DR PO SCH (17:43)
--- NOTE | 2017-11-14 19:33 | NUR ---
RECEIVED A CALLBACK FROM DR. DAVILA ORDERED MIRAPEX 0.25MG PO QPM. NOTED AND CARRIED OUT.
[2017-11-14] MEDS: PRAMIPEXOLE DI-HCL 0.25 MG TABLET PO SCH (19:36)
[2017-11-14 20:00] VITALS: BP 110/63
[2017-11-14] MEDS: TEMAZEPAM 7.5 MG CAPSULE PO PRN (21:46)
[2017-11-15] MEDS: ASPIRIN 81 MG TAB.CHEW PO SCH (08:37)
[2017-11-15] MEDS: CHOLECALCIFEROL 1,000 UNIT TABLET (VIT D3) PO SCH (08:37)
[2017-11-15] MEDS: MULTIVITAMINS,THERAGRAN 1 UDTAB TABLET PO SCH (08:37)
[2017-11-15] MEDS: DIVALPROEX SODIUM 250 MG TABLET.DR PO SCH ×3 (08:37→17:02)
[2017-11-15] MEDS: QUETIAPINE FUMARATE 25 MG TABLET PO SCH ×2 (08:37→17:02)
[2017-11-15] MEDS: PROPRANOLOL HCL 10 MG TABLET PO SCH ×2 (08:39→17:02)
[2017-11-15] MEDS: FLUTICASONE/VILANTEROL 1 EACH BLST.W.DEV IH SCH (09:22)
[2017-11-15 16:00] VITALS: BP 109/68
[2017-11-15] MEDS: PRAMIPEXOLE DI-HCL 0.25 MG TABLET PO SCH (17:02)
[2017-11-15 20:00] VITALS: BP 111/68
--- NOTE | 2017-11-15 20:05 | NUR ---
PT STATED "MY BREAST IS ITCHING". CHECK HER BREAST FOUND DISCOLORATION ON HER BREAST AREA. PICTURE TAKEN. WILL CONTINUE TO MONITOR.
[2017-11-15] MEDS: TEMAZEPAM 7.5 MG CAPSULE PO PRN (21:53)
[2017-11-15] MEDS: ATORVASTATIN 10 MG TABLET PO SCH (21:53)
[2017-11-16] MEDS: LORAZEPAM 0.5 MG TABLET PO PRN ×2 (01:20→07:59)
--- NOTE | 2017-11-16 01:27 | NUR ---
PT IS ANXIOUS, UNDIRECTABLE, ATIVAN 0.5MG PO GIVEN ORDERED. WILL CONTINUE TO MONITOR FOR SAFETY AND BEHAVIOR.
[2017-11-16 08:00] VITALS: BP 144/92
--- NOTE | 2017-11-16 08:00 | NUR ---
GPS/RN-NOTES NOTED PATIENT VERY ANXIOUS,PACING WITH AGGRESSIVE BEHAVIOR.GRABBING STAFF KEYS AND ID'S. UNCOOPERATIVE. ATIVAN 0.5MG P.O GIVEN PRN ORDER. WILL CONT. MONITORING FOR SAFETY AND BEHAVIOR.
--- NOTE | 2017-11-16 08:53 | NUR ---
GPS/RN-NOTES PATIENT RUNNING IN AND OUT OTHER PATIENT'S ROOM AND IN THE HALLWAY STATED" I NEED TO HIDE BEFORE MY COMES".UN ABLE TO REDIRECT PATIENT. DR. WEBSTER MADE AWARE OF PATIENT BEHAVIOR WITH T.O ORDER OF ZYPREXA 5MG IM X1. NOTED AND CARRIED OUT. GIVEN TO PATIENT LEFT BUTTOCK WITH TWO STAFF ASSIST.PATIENT TOLERATED WELL. WILL CONT. MONITORING FOR SAFETY AND BEHAVIOR.
[2017-11-16] MEDS ORDERED: LORAZEPAM INJ 2 MG/ML VIAL IM ONE (09:00)
[2017-11-16] MEDS ORDERED: OLANZAPINE 10 MG VIAL IM ONE (09:00)
[2017-11-16] MEDS: ASPIRIN 81 MG TAB.CHEW PO SCH (09:15)
[2017-11-16] MEDS: CHOLECALCIFEROL 1,000 UNIT TABLET (VIT D3) PO SCH (09:15)
[2017-11-16] MEDS: MULTIVITAMINS,THERAGRAN 1 UDTAB TABLET PO SCH (09:15)
[2017-11-16] MEDS: PROPRANOLOL HCL 10 MG TABLET PO SCH ×2 (09:16→16:25)
[2017-11-16] MEDS: FLUTICASONE/VILANTEROL 1 EACH BLST.W.DEV IH SCH (09:20)
[2017-11-16] MEDS: DIVALPROEX SODIUM 250 MG TABLET.DR PO SCH ×3 (09:58→16:25)
[2017-11-16] MEDS: QUETIAPINE FUMARATE 25 MG TABLET PO SCH ×2 (09:58→16:25)
[2017-11-16 16:00] VITALS: BP 141/80
[2017-11-16] MEDS: PRAMIPEXOLE DI-HCL 0.25 MG TABLET PO SCH (17:37)
[2017-11-16 20:12] VITALS: BP 122/81
[2017-11-17 08:00] VITALS: BP 136/95
[2017-11-17] MEDS: QUETIAPINE FUMARATE 25 MG TABLET PO SCH ×2 (08:11→16:35)
[2017-11-17] MEDS: ASPIRIN 81 MG TAB.CHEW PO SCH (08:11)
[2017-11-17] MEDS: DIVALPROEX SODIUM 250 MG TABLET.DR PO SCH ×3 (08:11→16:30)
[2017-11-17] MEDS: MULTIVITAMINS,THERAGRAN 1 UDTAB TABLET PO SCH (08:11)
[2017-11-17] MEDS: FLUTICASONE/VILANTEROL 1 EACH BLST.W.DEV IH SCH (08:11)
[2017-11-17] MEDS: CHOLECALCIFEROL 1,000 UNIT TABLET (VIT D3) PO SCH (08:11)
[2017-11-17] MEDS: PROPRANOLOL HCL 10 MG TABLET PO SCH ×2 (08:12→16:31)
--- NOTE | 2017-11-17 08:41 | NUR ---
UR Review: MARLA faxed updated clinicals for review to MARLA faxed clinicals to Marquita Cruz [phone] X [phone] / fax #[phone]. AUTHORIZATION#[id number]
--- NOTE | 2017-11-17 09:07 | NUR ---
UR Update: MARLA called and left a voicemail for Marquita WatsonZeb [phone] X [phone] to discuss the case, as the review is due today and authorization expires at the end of this day.
--- NOTE | 2017-11-17 10:47 | NUR ---
UR Review: MARLA received a voicemail from Marquita Cruz [phone] X [phone]. In the voicemail, Marquita requested a verbal clinical in addition to what MARLA faxed. MARLA called and left the clinical on Marquita's voicemail. The clinical included: reason for admission, current progress notes/symptoms, medication, discharge plan and information for patient's attending psychiatrist.
--- NOTE | 2017-11-17 11:24 | NUR ---
UR Review: MARLA received a call from Marquita Cruz [phone] X [phone]. Marquita informed MARLA that patient was authorized for the and , with a review due on the of this week.
--- NOTE | 2017-11-17 13:54 | NUR ---
Discharge Planning: MARLA had previously spoken with patient's , Adam [phone] on 11/14/16. Adam stated that he wanted a SNF placement for his . MARLA explained that the SNF will not be authorized/paid for by patient's insurance. MARLA encouraged Adam to consider enrolling patient on Medicare. Today, MARLA called and left a voicemail for patient's , Adam [phone]. MARLA provided her direct contact information in the voicemail.
[2017-11-17 16:00] VITALS: BP 126/71
[2017-11-17] MEDS: PRAMIPEXOLE DI-HCL 0.25 MG TABLET PO SCH (17:00)
[2017-11-17 20:10] VITALS: BP 142/52
[2017-11-17] MEDS: TEMAZEPAM 7.5 MG CAPSULE PO PRN (21:16)
[2017-11-18] MEDS: LORAZEPAM 0.5 MG TABLET PO PRN (01:28)
[2017-11-18 08:00] VITALS: BP 146/85
[2017-11-18] MEDS: ASPIRIN 81 MG TAB.CHEW PO SCH (08:40)
[2017-11-18] MEDS: PROPRANOLOL HCL 10 MG TABLET PO SCH ×2 (08:40→16:32)
[2017-11-18] MEDS: DIVALPROEX SODIUM 250 MG TABLET.DR PO SCH (08:40)
[2017-11-18] MEDS: CHOLECALCIFEROL 1,000 UNIT TABLET (VIT D3) PO SCH (08:40)
[2017-11-18] MEDS: QUETIAPINE FUMARATE 25 MG TABLET PO SCH ×2 (08:40→16:32)
[2017-11-18] MEDS: MULTIVITAMINS,THERAGRAN 1 UDTAB TABLET PO SCH (09:01)
[2017-11-18] MEDS: FLUTICASONE/VILANTEROL 1 EACH BLST.W.DEV IH SCH (09:01)
--- NOTE | 2017-11-18 10:10 | NUR ---
Discharge Planning: MARLA spoke with patient's , Adam [phone]. Adam stated that the family is preparing the house for patient's return by installing safety precautions and equipment to monitor patient. Adam stated that they are also in the process of getting a caregiver for the patient and are ready for her to return home tomorrow.
--- NOTE | 2017-11-18 14:37 | NUR ---
Discharge Note: On this day, patient was released by the court during her PC hearing. Patient [place] [address] / [phone]. Patient to be picked up by her , Adam Crook [phone] in his private vehicle at 6pm. Adam is in agreement with the discharge plan. Patient will be seen by her baseball player, Dr. Talib Caceres [address] [facility] [address], [place] [address] [phone] on November [address] Sunday Kang [address] [facility] [address] [address] [phone] on Friday, Nov 24 at 1:30pm. Patient was encouraged to present at [facility] [address] [place] [address] to address her substance use and was informed that [facility] accepts walk-in clients before 5pm on weekdays. Patient was encouraged to present there at 9am on Friday, Nov 21. Additional resources were [facility] [address] [place] [address] and [facility] [address] [place] [address]
[2017-11-18 16:19] VITALS: BP 122/71
[2017-11-18 16:32] VITALS: BP 122/71
[2017-11-18] MEDS ORDERED: DIVALPROEX SODIUM 250 MG TABLET.DR PO SCH (17:00)
[2017-11-18] MEDS: PRAMIPEXOLE DI-HCL 0.25 MG TABLET PO SCH (18:29)
--- NOTE | 2017-11-18 18:32 | NUR ---
DISCHARGE NOTE: PATIENT LEFT THE UNIT AT [address] WITH [address] SON. DR UGALDE DISCONTINUED THE HOLD, GAVE DISCHARGE ORDER, AND GAVE THE MED RECON. DR STEWARD MADE AWARE OF DISCHARGE AND GAVE THE MED RECON. PATIENT IS MEDICALLY STABLE. DENIES SI/HI AT TIME OF DISCHARGE. BELONGINGS GIVEN TO PATIENT. PATIENT SIGNED ALL PAPERS. EXIT CARE GIVEN TO PATIENT AND FAMILY AND EXPLAINED. SKIN ASSESSMENT AND PICTURES ARE IN THE CHART.
[2017-11-18] MEDS ORDERED: QUETIAPINE FUMARATE 25 MG TABLET PO SCH (22:00)
--- NOTE | 2017-11-19 10:45 | NUR ---
UR Update: MARLA called and left a voicemail for Marquita Cruz [phone] X [phone], informing her of the patient's discharge last evening. MARLA to call back with discharge summary from doctor once it is available.
== END 2017-11-18 18:37 | disposition home or self-care (01) | DRG 885 ==
LOC: ER 11:49 → GPS 15:27
PROVIDERS: ADMIT Psychiatry & Neurology Psychosomatic Medicine; ATTEND Psychiatry & Neurology Psychosomatic Medicine
DX: F31.5 Bipolar disorder, current episode depressed, severe, with psychotic features (principal); G31.83 Neurocognitive disorder with Lewy bodies; E78.5 Hyperlipidemia, unspecified; F29 Unspecified psychosis not due to a substance or known physiological condition; I10 Essential (primary) hypertension; F41.9 Anxiety disorder, unspecified; Z79.82 Long term (current) use of aspirin; I25.10 Atherosclerotic heart disease of native coronary artery without angina pectoris; Z79.899 Other long term (current) drug therapy; Z73.6 Limitation of activities due to disability; F19.90 Other psychoactive substance use, unspecified, uncomplicated; F10.10 Alcohol abuse, uncomplicated; Y90.9 Presence of alcohol in blood, level not specified; K21.9 Gastro-esophageal reflux disease without esophagitis; M79.7 Fibromyalgia
CPT/HCPCS: 36415; 80048-TC; 80076-TC; 80305; 81000-TC; 85025-TC; 87081-TC; A4606; G0480; J3490; Z7610